=== PATIENT | female | born 1980 | race Caucasian/White ===

== ENCOUNTER 2019-08-23 11:01 | Emergency (ER) | payer BC, SELFPAY ==
[2019-08-23] MEDS ORDERED: Ibuprofen 200 MG TAB ONE (11:48)
--- NOTE | 2019-08-23 12:15 | RAD ---
RIGHT FOREARM 2 VIEWS: DATE: 08/23/2019. FINDINGS: No acute fracture was seen. The radius and ulna appear intact. No joint effusion was seen at the el bow. IMPRESSION: No acute findings. POS: HOME
--- NOTE | 2019-08-23 12:16 | RAD ---
RIGHT HAND 3 VIEWS: DATE: 08/23/2019. FINDINGS: No acute fracture was seen. There is a gavino of bone at the tip of the ulnar styloid process that se ems more likely due to an old injury than acute one. The carpal relationships appear normal and no f ractures were appreciated in the metacarpals, carpals, or digits. IMPRESSION: No acute findings. POS: HOME
== END 2019-08-23 12:29 | disposition home or self-care (01) ==
LOC: BURERS 11:01
DX: S50.12XA Contusion of left forearm, initial encounter (principal); S70.02XA Contusion of left hip, initial encounter; S60.221A Contusion of right hand, initial encounter; I10 Essential (primary) hypertension; Z79.899 Other long term (current) drug therapy; W11.XXXA Fall on and from ladder, initial encounter